=== PATIENT | male | born 1995 | race Caucasian/White ===

== ENCOUNTER 2017-12-09 08:30 | Emergency (ER) | payer SELFPAY ==
[~2017-12-09] VITALS: Ht 170.2 cm; Wt 65.0 kg
[2017-12-09 12:55] LABS: BASOPHILS % 0.9 % (0.0-2.0); HEMATOCRIT. 47.3 % (42.0-52.0); HEMOGLOBIN. 16.8 g/dL (14.0-18.0); LYMPHOCYTES % 34.6 % (20.0-50.0); MEAN CORPUSCULAR HEMOGLOBIN 32.3 pg (28.0-32.0); MEAN CORPUSCULAR VOLUME 91.1 fL (80.0-94.0); MEAN PLATELET VOLUME 7.5 fl (7.4-10.4); MONOCYTES % 6.6 % (2.0-8.0); NEUTROPHILS % 56.9 % (40.0-76.0); PLATELET 361 x1000/uL (130-400); RED BLOOD CELL COUNT 5.19 mill/uL (4.7-6.1); RED CELL DISTRIBUTION WIDTH 13.5 % (11.6-14.6)
[2017-12-09 13:44] LABS: CHLORIDE 105 mEq/L (98-107)
[2017-12-09 13:52] LABS: ETHANOL BLOOD < 10 mg/dL
[2017-12-09 13:52] LABS: *AMPHETAMINES SCREEN URINE PRESUMTIVE POSITIVE (NEGATIVE); *BARBITURATES SCREEN URINE NEGATIVE (NEGATIVE); *BENZODIAZEPINES SCREEN URINE NEGATIVE (NEGATIVE); *COCAINE SCREEN URINE NEGATIVE (NEGATIVE); CANNABINOID URINE SCREEN PRESUMTIVE POSITIVE (NEGATIVE); METHADONE URINE SCREEN NEGATIVE (NEGATIVE); OPIATES URINE SCREEN NEGATIVE (NEGATIVE); PHENCYCLIDINE URINE SCREEN NEGATIVE (NEGATIVE)
[2017-12-09] MEDS ORDERED: LORAZEPAM 2MG/ML CPJ IM NR (15:37)
[2017-12-09] MEDS: QUETIAPINE FUMARATE 50MG TABLET PO SCH ×2 (18:30→19:22)
[2017-12-09] MEDS ORDERED: QUETIAPINE FUMARATE 50MG TABLET PO SCH (21:00)
[2017-12-09] MEDS: OLANZAPINE 10MG TABLET PO PRN (21:30)
[2017-12-10] MEDS: OLANZAPINE 10MG TABLET PO PRN (21:39)
[2017-12-12 02:03] VITALS: BP 122/90
== END 2017-12-12 02:05 ==
LOC: ER 08:56
DX: F32.89 Other specified depressive episodes (principal); F23 Brief psychotic disorder; R45.851 Suicidal ideations; F41.9 Anxiety disorder, unspecified; F15.10 Other stimulant abuse, uncomplicated; F12.10 Cannabis abuse, uncomplicated; F50.9 Eating disorder, unspecified; Z86.19 Personal history of other infectious and parasitic diseases
CPT/HCPCS: 36415; 80053; 80305; 80307; 80329; 85025; 93005; 96372; 99285; G0482; J2060; Z7610